=== PATIENT | female | born 1950 | race Caucasian/White ===

== ENCOUNTER 2021-08-11 08:05 | Day surgery (SDC) | payer OTHER ==
[~2021-08-11] VITALS: Ht 165.1 cm; Wt 76.5 kg
[2021-08-11] MEDS ORDERED: LEVOTHYROXINE200 MCG PO (08:38)
[2021-08-11] MEDS ORDERED: ROSU10TA PO (08:38)
--- NOTE | 2021-08-11 08:43 | NUR ---
08/11/21 0843 Christie Vaz CALL LIGHT WITHIN REACH. TETRACAINE AT 0841 AND PLEDGETT AT 0874
== END 2021-08-11 10:13 | disposition home or self-care (01) ==
LOC: ORSCSDS 08:05
PROVIDERS: Ophthalmology
PROC: 08RJ3JZ Replacement of Right Lens with Synthetic Substitute, Percutaneous Approach (ICD-10-PCS; principal; 2021-08-11 09:30)
DX: H25.13 Age-related nuclear cataract, bilateral (principal); K21.9 Gastro-esophageal reflux disease without esophagitis; Z79.899 Other long term (current) drug therapy
CPT/HCPCS: J2001; J2250; J3010; J3301; J7040; V2632

== ENCOUNTER 2021-09-01 08:12 | Day surgery (SDC) | payer OTHER ==
[~2021-09-01] VITALS: Ht 165.1 cm; Wt 76.9 kg
[~2021-09-01 08:12] MED LIST: LEVOTHYROXINE200 MCG PO; ROSU10TA PO
--- NOTE | 2021-09-01 08:44 | NUR ---
09/01/21 0844 Aishwarya Petit-0833 [id number]
== END 2021-09-01 09:57 | disposition home or self-care (01) ==
LOC: ORSCSDS 08:12
PROVIDERS: Ophthalmology
PROC: 08RK3JZ Replacement of Left Lens with Synthetic Substitute, Percutaneous Approach (ICD-10-PCS; principal; 2021-09-01 09:30)
DX: H25.12 Age-related nuclear cataract, left eye (principal); J45.909 Unspecified asthma, uncomplicated; E03.9 Hypothyroidism, unspecified; Z79.899 Other long term (current) drug therapy
CPT/HCPCS: J2001; J2250; J3010; J3301; J7040; V2632

== ENCOUNTER → 2023-02-20 | Outpatient (CLI) | payer OTHER | LOC: LAB SHORT 09:45 → LAB 09:45 | DX: L72.3 Sebaceous cyst (principal) | CPT/HCPCS: 87070; 87205 ==